=== PATIENT | male | born 1960 | race Caucasian/White ===

== ENCOUNTER 2024-01-22 05:19 | Inpatient (IN) | payer MEDICARE ==
[2024-01-22] VITALS (7 sets, daily range): BP systolic 137–164; BP diastolic 76–92; PULSE 68–99; RESP 18; O2SAT 98
[~2024-01-22] VITALS: Ht 198.1 cm; Wt 103.6 kg
[2024-01-22] MEDS: nitroGLYCERIN-Tridil 50MG/D5W 250 ML IV SCH (05:49)
[2024-01-22 05:58] LABS: BASOPHILS % (AUTO) 0.3 % (0-1); EOSINOPHILS # (AUTO) 0.1 X10'3 (0-0.9); EOSINOPHILS % (AUTO) 0.8 % (0-6); HEMATOCRIT 44.9 % (42.0-52.0); HEMOGLOBIN 15.3 g/dl (14.0-17.9); LYMPHOCYTES # (AUTO) 1.2 X10'3 (1.1-4.8); LYMPHOCYTES % (AUTO) 12.8 % (21-51); MEAN CORPUSCULAR HEMOGLOBIN 31.3 PG (27.0-31.0); MEAN CORPUSCULAR HGB CONC 34.1 g/dL (33.0-36.5); MEAN PLATELET VOLUME 8.8 FL (7.4-10.4); MONOCYTES # (AUTO) 0.6 X10'3 (0-0.9); MONOCYTES % (AUTO) 7.1 % (2-12); NEUTROPHILS # (AUTO) 7.2 X10'3 (1.8-7.7); PLATELET COUNT 206 X10'3 (140-440); RED BLOOD COUNT 4.88 X10'6 (4.70-6.10); RED CELL DISTRIBUTION WIDTH 14.1 % (11.5-14.5); WHITE BLOOD COUNT 9.1 X10'3 (4.5-11.0)
[2024-01-22 06:15] LABS: ALBUMIN 3.4 G/DL (3.4-5.0); ANION GAP 10 (8-16); BLOOD UREA NITROGEN 11 MG/DL (7-18); CALCIUM 8.7 MG/DL (8.5-10.1); CHLORIDE 109 MMOL/L (99-107); CREATININE 0.92 MG/DL (0.60-1.10); GLUCOSE 103 MG/DL (70-104); MAGNESIUM 1.8 MG/DL (1.5-2.4); POTASSIUM 3.6 MMOL/L (3.5-5.1); PRO BRAIN NATRIURETIC PEPTIDE 2154 PG/ML (0-125); SODIUM 144 MMOL/L (135-145); TOTAL CARBON DIOXIDE 25.4 MMOL/L (24-32); eCRCL 106 ML/MIN; eGFR 83 ML/MIN
[2024-01-22] MEDS ORDERED: potassium Cl 20 mEq SR tablet PO PRN (07:15)
[2024-01-22] MEDS ORDERED: potassium Cl 40MEQ/1/2NS 520ml 520 ML IV PRN (07:15)
[2024-01-22] MEDS ORDERED: ondansetron/PF 4mg/2ml inj IV PRN (07:15)
[2024-01-22] MEDS ORDERED: acetaminophen 325mg tablet PO PRN ×2 (07:15)
[2024-01-22] MEDS ORDERED: magnesium sulf-water 4G/100mL 100 ML IV PRN (07:15)
[2024-01-22] MEDS ORDERED: HYDROcodone/acetaminophen 10/325mg tab PO PRN (07:15)
[2024-01-22] MEDS ORDERED: HYDROcodone/acetaminophen 5mg/325mg tablet PO PRN (07:15)
[2024-01-22] MEDS ORDERED: magnesium Cl slow-release 64mg tablet PO PRN (07:15)
[2024-01-22] MEDS ORDERED: magnesium sulf-water 2g/50mL 50 ML IV PRN (07:15)
[2024-01-22] MEDS ORDERED: morphine 2 MG/ML inj. syringe IV PRN ×2 (07:15)
[2024-01-22] MEDS: pantoprazole 40mg Tablet.DR PO SCH (07:51)
[2024-01-22] MEDS: lisinopril 10 MG tablet PO SCH (07:51)
[2024-01-22] MEDS: heparin, porcine 5000 units/ml vial SQ SCH (08:00)
[2024-01-22] MEDS: furosemide 10 MG/1 ML 10ml inj IV ONE (09:39)
[2024-01-22] MEDS ORDERED: FURO20TA4 PO (13:00)
[2024-01-22] MEDS ORDERED: MIRT-87 PO (13:00)
[2024-01-22] MEDS ORDERED: METO-384 PO (13:00)
[2024-01-22] MEDS ORDERED: VENL150C58 PO (13:00)
[2024-01-22] MEDS ORDERED: GABA600T13 PO (13:00)
[2024-01-22] MEDS ORDERED: ATOR40TA72 PO (13:00)
[2024-01-22] MEDS ORDERED: SACU1TAB4 PO (13:00)
[2024-01-22] MEDS ORDERED: OMEP20CA16 PO (13:00)
[2024-01-22] MEDS: regadenoson 0.4mg/5ml syringe IV ONE (13:51)
[2024-01-22] MEDS ORDERED: aminophylline inj. 0 ML IV ONE (13:51)
[2024-01-22] MEDS: furosemide 40mg/4ml inj IV SCH (15:10)
[2024-01-22] MEDS: nicotine 14mg patch - 24hr TD SCH (18:39)
[2024-01-22] MEDS: spironolactone 25 MG tablet PO SCH (18:50)
[2024-01-22 19:18] LABS: URINE AMPHETAMINE SCREEN NEGATIVE (Neg); URINE BARBITUATE SCREEN NEGATIVE (Neg); URINE BENZODIAZEPINES SCREEN NEGATIVE (Neg); URINE CANNABINOID SCREEN NEGATIVE (Neg); URINE COCAINE SCREEN NEGATIVE (Neg); URINE METHADONE SCREEN NEGATIVE (Neg); URINE OPIATE SCREEN NEGATIVE (Neg); URINE PHENCYCLIDINE SCREEN NEGATIVE (Neg)
[2024-01-22] MEDS: mirtazapine 15mg tablet PO SCH (20:44)
[2024-01-22] MEDS: gabapentin 300mg capsule PO SCH (20:45)
[2024-01-22] MEDS: sacubitril/valsartan 49mg-51mg tablet PO SCH (20:45)
[2024-01-23] MEDS: pantoprazole 40mg Tablet.DR PO SCH (08:00)
[2024-01-23] MEDS: venlafaxine XR 75mg capsule (Q24H) PO SCH (08:11)
[2024-01-23] MEDS: metoprolol succinate 25mg (24-HOUR) SR. Tablet PO SCH (08:11)
[2024-01-23] MEDS: atorvastatin 20mg tablet PO SCH (08:14)
[2024-01-23 09:22] LABS: BASOPHILS % (AUTO) 0.7 % (0-1); EOSINOPHILS # (AUTO) 0.1 X10'3 (0-0.9); HEMATOCRIT 50.2 % (42.0-52.0); HEMOGLOBIN 17.2 g/dl (14.0-17.9); LYMPHOCYTES # (AUTO) 1.7 X10'3 (1.1-4.8); LYMPHOCYTES % (AUTO) 28.8 % (21-51); MEAN CORPUSCULAR HEMOGLOBIN 31.7 PG (27.0-31.0); MEAN CORPUSCULAR HGB CONC 34.3 g/dL (33.0-36.5); MEAN CORPUSCULAR VOLUME 92.3 FL (78-98); MEAN PLATELET VOLUME 9.2 FL (7.4-10.4); MONOCYTES # (AUTO) 0.3 X10'3 (0-0.9); NEUTROPHILS # (AUTO) 3.7 X10'3 (1.8-7.7); NEUTROPHILS % (AUTO) 63.5 % (42-75); PLATELET COUNT 234 X10'3 (140-440); RED BLOOD COUNT 5.43 X10'6 (4.70-6.10); WHITE BLOOD COUNT 5.8 X10'3 (4.5-11.0)
[2024-01-23 09:39] LABS: ALANINE AMINOTRANSFERASE 28 U/L (12-78); ALBUMIN 3.9 G/DL (3.4-5.0); ALKALINE PHOSPHATASE 72 IU/L (46-116); ANION GAP 12 (8-16); ASPARTATE AMINO TRANSFERASE 17 U/L (10-37); BILIRUBIN,TOTAL 0.9 MG/DL (0.1-1.0); BLOOD UREA NITROGEN 16 MG/DL (7-18); BUN/CREATININE RATIO 15.4 (10.0-20.0); CALCIUM 9.3 MG/DL (8.5-10.1); CHLORIDE 101 MMOL/L (99-107); CREATININE 1.04 MG/DL (0.60-1.10); GLUCOSE 208 MG/DL (70-104); POTASSIUM 3.4 MMOL/L (3.5-5.1); SODIUM 141 MMOL/L (135-145); TOTAL CARBON DIOXIDE 28.3 MMOL/L (24-32); TOTAL PROTEIN 7.9 G/DL (6.4-8.2); eCRCL 94 ML/MIN; eGFR 72 ML/MIN
[2024-01-23 13:09] VITALS: BP 131/90; PULSE 77; RESP 16; TEMP 98.3; O2SAT 96
[2024-01-23 15:24] VITALS: RESP 16
[2024-01-23 18:00] VITALS: BP 137/92; PULSE 63; RESP 18; TEMP 97.1; O2SAT 98
[2024-01-23 20:00] VITALS: RESP 18; O2SAT 98
[2024-01-23] MEDS: potassium Cl 20 mEq SR tablet PO PRN (21:14)
[2024-01-23 22:00] VITALS: BP 140/81; PULSE 70; RESP 18; TEMP 97.1; O2SAT 95
[2024-01-24 02:00] VITALS: BP 97/64; PULSE 71; RESP 17; TEMP 98.1; O2SAT 94
[2024-01-24 06:00] VITALS: BP 105/69; PULSE 78; RESP 16; TEMP 98.2; O2SAT 92
[2024-01-24 06:45] LABS: BASOPHILS % (AUTO) 0.7 % (0-1); EOSINOPHILS # (AUTO) 0.1 X10'3 (0-0.9); HEMOGLOBIN 16.8 g/dl (14.0-17.9); LYMPHOCYTES # (AUTO) 2.3 X10'3 (1.1-4.8); MEAN CORPUSCULAR HEMOGLOBIN 31.7 PG (27.0-31.0); NEUTROPHILS # (AUTO) 2.5 X10'3 (1.8-7.7)
[2024-01-24 06:49] LABS: EOSINOPHILS % (AUTO) 1.4 % (0-6); HEMATOCRIT 48.3 % (42.0-52.0); LYMPHOCYTES % (AUTO) 40.8 % (21-51); MEAN CORPUSCULAR HGB CONC 34.8 g/dL (33.0-36.5); MEAN CORPUSCULAR VOLUME 91.1 FL (78-98); MEAN PLATELET VOLUME 9.4 FL (7.4-10.4); MONOCYTES # (AUTO) 0.7 X10'3 (0-0.9); MONOCYTES % (AUTO) 12.2 % (2-12); NEUTROPHILS % (AUTO) 44.9 % (42-75); PLATELET COUNT 205 X10'3 (140-440); WHITE BLOOD COUNT 5.6 X10'3 (4.5-11.0)
[2024-01-24 06:58] LABS: ALANINE AMINOTRANSFERASE 21 U/L (12-78); ALBUMIN 3.7 G/DL (3.4-5.0); ALKALINE PHOSPHATASE 67 IU/L (46-116); ANION GAP 8 (8-16); ASPARTATE AMINO TRANSFERASE 29 U/L (10-37); BILIRUBIN,TOTAL 0.8 MG/DL (0.1-1.0); BLOOD UREA NITROGEN 25 MG/DL (7-18); BUN/CREATININE RATIO 28.1 (10.0-20.0); CALCIUM 9.3 MG/DL (8.5-10.1); CHLORIDE 102 MMOL/L (99-107); CREATININE 0.89 MG/DL (0.60-1.10); GLUCOSE 96 MG/DL (70-104); POTASSIUM 3.6 MMOL/L (3.5-5.1); SODIUM 140 MMOL/L (135-145); TOTAL CARBON DIOXIDE 30.2 MMOL/L (24-32); TOTAL PROTEIN 7.3 G/DL (6.4-8.2); eCRCL 110 ML/MIN; eGFR 86 ML/MIN
[2024-01-24 08:00] VITALS: RESP 16; O2SAT 92
[2024-01-24] MEDS ORDERED: NICO-631 TD (10:32)
[2024-01-24] MEDS ORDERED: SPIR25TA PO (10:32)
[2024-01-24 11:00] VITALS: BP 114/76; PULSE 74; RESP 19; TEMP 98; O2SAT 98
[2024-01-24] MEDS ORDERED: SACU1TAB7 PO (13:30)
== END 2024-01-24 13:44 | disposition home or self-care (01) | DRG 291 ==
LOC: ER 05:20 → ED HOLD 07:16 → PCU 3S 01-23 13:18
PROVIDERS: ADMIT Internal Medicine; ATTEND Internal Medicine
PROC: 4A02XM4 Measurement of Cardiac Total Activity, External Approach (ICD-10-PCS; principal; 2024-01-22)
PROC: 3E033HZ Introduction of Radioactive Substance into Peripheral Vein, Percutaneous Approach (ICD-10-PCS; 2024-01-22)
DX: I11.0 Hypertensive heart disease with heart failure (principal); I50.23 Acute on chronic systolic (congestive) heart failure; I42.9 Cardiomyopathy, unspecified; M54.32 Sciatica, left side; M54.31 Sciatica, right side; E87.6 Hypokalemia; F32.A Depression, unspecified; F17.200 Nicotine dependence, unspecified, uncomplicated; I34.0 Nonrheumatic mitral (valve) insufficiency; E78.5 Hyperlipidemia, unspecified; I25.10 Atherosclerotic heart disease of native coronary artery without angina pectoris; Z91.148 Patient's other noncompliance with medication regimen for other reason; Z88.5 Allergy status to narcotic agent
CPT/HCPCS: 36415; 71045; 78452; 80048; 80053; 80305; 83735; 83880; 84484; 85025; 87081; 93005; 93017; 93306; 96365; 99285; A6590; A9500; G0378; J0280; J1644; J1940; J2785; J3490